=== PATIENT | female | born 1980 | race Two or more races ===

== ENCOUNTER 2016-11-30 16:55 | Emergency (ER) | payer MEDICAID ==
[~2016-11-30] VITALS: Ht 154.9 cm; Wt 116.1 kg
[2016-11-30] MEDS ORDERED: LIDOCAINE 1% HCL (LOCAL ANESTH.) INJ 20ML MDV IN ONE (19:00)
[2016-11-30 20:13] VITALS: BP 145/86
== END 2016-11-30 20:11 | disposition home or self-care (01) ==
LOC: ER 17:02
DX: S61.411A Laceration without foreign body of right hand, initial encounter (principal); W45.8XXA Other foreign body or object entering through skin, initial encounter; Y93.G1 Activity, food preparation and clean up; Y99.8 Other external cause status; Y92.098 Other place in other non-institutional residence as the place of occurrence of the external cause; Z88.0 Allergy status to penicillin; Z91.040 Latex allergy status
CPT/HCPCS: 12001; 99283; J2001

== ENCOUNTER 2019-03-12 16:13 | Emergency (ER) | payer MEDICAID ==
[~2019-03-12] VITALS: Ht 154.9 cm; Wt 126.1 kg
[2019-03-12 20:35] VITALS: BP 176/44
[2019-03-12] MEDS ORDERED: BACLOFEN 10 MG TAB PO ONE (20:45)
[2019-03-12] MEDS ORDERED: KETOROLAC TROMETH 60MG/2ML VIAL IM ONE (20:45)
[2019-03-12] MEDS ORDERED: ACETAMINOPHEN/CODEINE#3 (300/30mg) TAB PO ONE (20:45)
== END 2019-03-12 21:36 | disposition home or self-care (01) ==
LOC: ER 16:13
DX: M54.16 Radiculopathy, lumbar region (principal); Z88.0 Allergy status to penicillin; Z91.040 Latex allergy status
CPT/HCPCS: 72100; 96372; 99283; J1885

== ENCOUNTER 2023-03-12 15:35 | Emergency (ER) | payer MEDICAID ==
[~2023-03-12] VITALS: Ht 154.9 cm; Wt 136.1 kg
[2023-03-12 18:30] VITALS: BP 156/57; PULSE 71; RESP 18; TEMP 97.8; O2SAT 97
== END 2023-03-12 18:37 | disposition home or self-care (01) ==
LOC: ER 15:35
DX: M25.572 Pain in left ankle and joints of left foot (principal); J45.909 Unspecified asthma, uncomplicated; Z98.890 Other specified postprocedural states; Z87.891 Personal history of nicotine dependence; Z91.040 Latex allergy status; Z88.8 Allergy status to other drugs, medicaments and biological substances

== ENCOUNTER 2023-05-08 19:32 | Emergency (ER) | payer MEDICAID ==
[~2023-05-08] VITALS: Ht 154.9 cm; Wt 126.0 kg
[2023-05-08 22:16] LABS: Basophils # (auto) 0 10 ^3/uL (0-0.2); Basophils % (auto) 0.3 % (0.0-2.0); Eosinophils # (auto) 0 10 ^3/uL (0-0.8); Eosinophils % (auto) 0.3 % (0.0-7.0); Hematocrit 44.6 % (36.0-46.0); Hemoglobin 14.8 g/dL (12.2-16.2); Lymphocytes # (auto) 1.4 10 ^3/uL (0.4-5.4); Lymphocytes % (auto) 18.9 % (10.0-50.0); Mean Corpuscular Hemoglobin 30.6 pg (28.0-32.0); Mean Corpuscular Hgb Conc. 33.1 g/dL (32.0-36.0); Mean Corpuscular Volume 92.3 fL (80.0-100.0); Monocytes # (auto) 0.6 10 ^3/uL (0-1.3); Monocytes % (auto) 8.5 % (0.0-12.0); Neutrophils # (auto) 5.2 10 ^3/uL (1.6-8.6); Red Blood Cells 4.83 10^6/uL (4.0-5.20); Red Cell Distribution Width 13.9 % (11.8-14.3); White Blood Cell 7.2 10^3/uL (4.4-10.8)
[2023-05-08 22:26] LABS: Chloride 103 mmol/L (98-107); Potassium 3.2 mmol/L (3.5-5.1); Sodium 138 mmol/L (136-145)
[2023-05-08 22:27] LABS: Anion Gap 8 (5-15); Carbon Dioxide 27 mmol/L (20-30)
[2023-05-08 22:28] LABS: Calcium 8.7 mg/dL (8.7-10.4)
[2023-05-08 22:32] LABS: Glucose 104 mg/dL (74-106)
[2023-05-08 22:33] LABS: BUN/Creatinine Ratio 4.3 (10.0-20.0); Blood Urea Nitrogen 7 mg/dL (9-23); Lipase 39 U/L (12-53)
[2023-05-09 00:20] VITALS: BP 157/50; PULSE 79; RESP 16; TEMP 98.3; O2SAT 95
[2023-05-09] MEDS: METOCLOPRAMIDE HCL 5MG/ml INJ 2ml VIAL IM ONE (00:26)
[2023-05-09] MEDS: DICYCLOMINE HCL (10MG/ML) 2 ML AMPULE IM ONE (00:26)
[2023-05-09] MEDS: ONDANSETRON ODT 4 MG TAB PO ONE (00:26)
[2023-05-09 00:38] LABS: COVID19 ANTIGEN SOFIA FIA NEGATIVE (NEGATIVE)
[2023-05-09 01:31] LABS: Urine Bacteria MANY /hpf (None Seen); Urine Blood Negative /uL (Negative); Urine Clarity HAZY (Clear); Urine Color Colorless (Yellow); Urine Protein, UAD Negative (Negative); Urine Specific Gravity 1.001 (1.001-1.035); Urine Urobilinogen Normal (Negative); Urine WBC 1 /hpf (0 - 5)
[2023-05-09] MEDS ORDERED: ACET500T58 PO (02:02)
[2023-05-09] MEDS ORDERED: ZOFR4T PO (02:02)
[2023-05-09] MEDS ORDERED: METO-281 PO (02:02)
[2023-05-09] MEDS ORDERED: DICY10CA PO (02:02)
== END 2023-05-09 02:12 | disposition home or self-care (01) ==
LOC: ER 19:32
DX: A08.4 Viral intestinal infection, unspecified (principal); R10.2 Pelvic and perineal pain; J45.909 Unspecified asthma, uncomplicated; Z98.890 Other specified postprocedural states; Z87.891 Personal history of nicotine dependence; Z91.040 Latex allergy status; Z88.0 Allergy status to penicillin; Z20.822 Contact with and (suspected) exposure to COVID-19
CPT/HCPCS: 36415; 80048; 81001; 81025; 83690; 84702; 85025; 87426; 96372; 99284; J0500; J2765; Q0162

== ENCOUNTER 2023-12-05 17:38 | Emergency (ER) | payer MEDICAID ==
[~2023-12-05] VITALS: Ht 154.9 cm; Wt 139.1 kg
[~2023-12-05 17:38] MED LIST: ACET500T58 PO; DICY10CA PO; METO-281 PO; ZOFR4T PO
[2023-12-05 18:28] VITALS: BP 154/86; PULSE 77; RESP 18; TEMP 98.5; O2SAT 98
== END 2023-12-05 20:05 | disposition home or self-care (01) ==
LOC: ER 17:38
DX: I10 Essential (primary) hypertension (principal); E66.01 Morbid (severe) obesity due to excess calories; F17.290 Nicotine dependence, other tobacco product, uncomplicated; J45.909 Unspecified asthma, uncomplicated; G43.909 Migraine, unspecified, not intractable, without status migrainosus; Z68.43 Body mass index [BMI] 50.0-59.9, adult; Z90.49 Acquired absence of other specified parts of digestive tract; Z79.899 Other long term (current) drug therapy; Z98.890 Other specified postprocedural states; Z88.0 Allergy status to penicillin; Z91.040 Latex allergy status

== ENCOUNTER 2024-09-19 13:06 | Emergency (ER) | payer MEDICAID ==
[~2024-09-19] VITALS: Ht 154.9 cm; Wt 132.1 kg
--- NOTE | 2024-09-19 13:58 | ED.PDOC ---
HPI Comments This is a 44 year old female presenting to the ED with chief complaint of headache. Patient reports that she was placed on Losartan 25mg for uncontrolled hypertension, however, it continued to remain uncontrolled. Patient relays that her PCP then placed her on 100mg of it, but since then she has been experiencing headaches with associated lightheadedness and syncopal episodes. Patient states that she will have episodes of SOB when resting and when the headaches occur. Patient denies any chest pain, dizziness, fever, chills, cough, numbness, weakness, or tingling. Chief Complaint: High Blood Pressure Time Seen by MD: 13:57 Primary Care Provider: [facility] Reviewed Notes: Nurses Notes, Medications, Allergies Allergies: Coded Allergies: Latex (Verified Allergy, Unknown, 11/30/16) Penicillins (Verified Allergy, Unknown, 11/30/16) Uncoded Allergies: BEES (Allergy, Unknown, 11/30/16) Home Meds Active Scripts Acetaminophen (Acetaminophen) 500 Mg Tab, 500 MG PO Q4HP PRN, #30 TAB Prov:SACHA HAMMOND PAC 05/09/23 Dicyclomine Hcl (BENTYL CAPSULE) 10 Mg Cp, 1 CAP PO Q6HPRN, #20 CAP 0 Refills Prov:SACHA HAMMOND PAC 05/09/23 Metoclopramide Hcl (Reglan) 10 Mg Tab, 10 MG PO Q8HP PRN, #15 TAB Prov:SACHA HAMMOND PAC 05/09/23 Ondansetron Odt 4MG Tab (ZOFRAN PO) 4 Mg Tb, 4 MG PO Q6HP PRN, #20 TAB ODT TAB-DISSOLVE IN MOUTH, THEN SWALLOW Prov:SACHA HAMMOND PAC 05/09/23 Information Source: Patient, Spouse Mode of Arrival: Ambulatory Severity: Moderate Timing: Days Duration: Since onset Prehospital treatment: None Onset: At Rest Cardiac Risk Factors: HTN PE Risk Factors: None History of: None Associated Signs and Symptoms: SOB, Syncope Past Medical History PAST MEDICAL HISTORY: Asthma, HTN, Thyroid Surgical History: Cholecystectomy VET ASSISTANT History: No Pertinent VET ASSISTANT History Family History Family History: Unknown Social History Smoker: Other Alcohol: Occasionally Drugs: Denies Drug Use Lives In: Home Constitutional: denies: chills, diaphoresis, fatigue, fever, malaise, sweats, weakness, others EENTM: denies: blurred vision, double vision, ear bleeding, ear discharge, ear drainage, ear pain, ear ringing, eye pain, eye redness, hearing loss, mouth pain, mouth swelling, nasal discharge, nose bleeding, nose congestion, nose pain, photophobia, tearing, throat pain, throat swelling, voice changes, others Respiratory: reports: SOB at rest; denies: cough, hemoptysis, orthopnea, shortness of breath, SOB with excertion, stridor, wheezing, others Cardiovascular: reports: lightheadedness, syncope; denies: chest pain, dizzy spells, diaphoresis, Dyspnea on exertion, edema, irregular heart beat, left arm pain, palpitations, PND, others Gastrointestinal: denies: abdomen distended, abdominal pain, blood streaked bowels, constipated, diarrhea, dysphagia, difficulty swallowing, hematemesis, melena, nausea, poor appetite, poor fluid intake, rectal bleeding, rectal pain, vomiting, others Genitourinary: denies: abnormal vagina bleeding, burning, dyspareunia, dysuria, flank pain, frequency, hematuria, incontinence, pain, , vagina discharge, urgency, others Neurological: reports: headache; denies: dizziness, fainting, left sided numbness, left sided weakness, numbness, paresthesia, pre-existing deficit, right sided numbness, right sided weakness, seizure, speech problems, tingling, tremors, weakness, others Musculoskeletal: denies: back pain, gout, joint pain, joint swelling, muscle pain, muscle stiffness, neck pain, others Integumetry: denies: bruises, change in color, change in hair/nails, dryness, laceration, lesions, lumps, rash, wounds, others Allergic/Immunocompromised: denies: Difficulty Healing, Frequent Infections, Hives, Itching, others Hematologic/Lymphatic: denies: anemia, blood clots, easy bleeding, easy bruising, swollen glands, others Endocrine: denies: excessive hunger, excessive sweating, excessive thirst, excessive urination, flushing, intolerance to cold, intolerance to heat, unexplained weight gain, unexplained weight loss, others Psychiatric: denies: anxiety, bipolar disorder, depression, hopeless, panic disorder, schizophrenia, sleepless, suicidal, others All Other Systems: Reviewed and Negative Physical Exam General Appearance: Moderate Distress, Normal HEENT: Normal ENT Inspection, Pharynx Normal, TMs Normal Neck: Full Range of Motion, Non-Tender, Normal, Normal Inspection Respiratory: Chest Non-Tender, Lungs Clear, No Accessory Muscle Use, No Respiratory Distress, Normal Breath Sounds Cardiovascular: No Edema, No JVD, No Murmur, No Gallop, Normal Peripheral Pulses, Regular Rate/Rhythm Breast Exam: Deferred Gastrointestinal: No Organomegaly, Non Tender, No Pulsatile Mass, Normal Bowel Sounds, Soft Genitalia: Deferred Pelvic: Deferred Rectal: Deferred Extremities: No calf tenderness, Normal capillary refill, Normal inspection, Normal range of motion, Non-tender, No pedal edema Musculoskeletal : Apperance: Normal Neurologic: Alert, air pumper II-XII nml as Tested, No Motor Deficits, Normal Affect, Normal Mood, No Sensory Deficits Cerebellar Function: Normal Reflexes: Normal Skin: Dry, Normal Color, Warm Peripheral Pulses: 3+ Radial (R), 3+ Radial (L) Lymphatic: No Adenopathy EKG EKG : Pulse Rate (adult): 72 [place]: Normal Cardiac Rhythm: NSR Block: None Hypertrophy: None ST: Normal Was a procedure done? Was a procedure done?: No CP Differential Dx Differential Diagnosis: A-fib, A-Flutter, Angina, Anxiety / Panic Attack, Atr ial Dysrhythmia, Electrolyte Disorder X-Ray, Labs, Meds, VS Vital Signs Date Time Temp Pulse Resp B/P (MAP) Pulse Ox O2 Delivery O2 Flow Rate FiO2 09/19/24 13:58 72 09/19/24 13:18 74 09/19/24 13:08 97.5 83 16 162/73 98 97.5 Lab Test 09/19/24 13:58 Range/Units White Blood Count 6.8 4.4-10.8 10^3/uL Red Blood Count 4.70 4.0-5.20 10^6/uL Hemoglobin 14.6 12.2-16.2 g/dL Hematocrit 43.4 36.0-46.0 % Mean Corpuscular Volume 92.2 80.0-100.0 fL Mean Corpuscular Hemoglobin 31.1 28.0-32.0 pg Mean Corpuscular Hemoglobin Concent 33.7 32.0-36.0 g/dL Red Cell Distribution Width 14.6 H 11.8-14.3 % Platelet Count 186 140-450 10^3/uL Mean Platelet Volume 8.9 6.9-10.8 fL Neutrophils (%) (Auto) 59.1 37.0-80.0 % Lymphocytes (%) (Auto) 31.0 10.0-50.0 % Monocytes (%) (Auto) 7.5 0.0-12.0 % Eosinophils (%) (Auto) 1.8 0.0-7.0 % Basophils (%) (Auto) 0.6 0.0-2.0 % Neutrophils # (Auto) 4.0 1.6-8.6 10 ^3/uL Lymphocytes # (Auto) 2.1 0.4-5.4 10 ^3/uL Monocytes # (Auto) 0.5 0-1.3 10 ^3/uL Eosinophils # (Auto) 0.1 0-0.8 10 ^3/uL Basophils # (Auto) 0 0-0.2 10 ^3/uL Nucleated Red Blood Cells 0.2 % Sodium Level 139 136-145 mmol/L Potassium Level 4.0 3.5-5.1 mmol/L Chloride Level 107 98-107 mmol/L Carbon Dioxide Level 25 20-31 mmol/L Anion Gap 7 5-15 Blood Urea Nitrogen 9 9-23 mg/dL Creatinine 0.84 0.550-1.02 mg/dL Glomerular Filtration Rate Calc 87 >90 mL/min BUN/Creatinine Ratio 10.7 10.0-20.0 Serum Glucose 101 74-106 mg/dL Calcium Level 8.7 8.7-10.4 mg/dL Patient alert. Complaining of headache. History of high blood pressure. Vitals stable. Answering questions. Was given clonidine. Was given Ativan. Good muscle strength. No sign of any distress. WBC within normal limits. Hemoglobin within normal limits. CT of the head reviewed does not show any acute changes. Explained to the patient. Was told to follow up with her primary care physician. Was told to come back if there is any problem. Time of 1ST Reevaluation: 14:56 Reevaluation 1ST: Unchanged Patient Education/Counseling: Diagnosis, Treatment Family Education/Counseling: Diagnosis, Treatment SEPSIS Sepsis Screen Date sepsis recognized/suspect: Sep 19, 2024 Time Sepsis recognized/suspect: 1308 Recent Procedure: No On Antibiotic Therapy: No Respiratory Rate >20: No Heart Rate >90: No Temp<36 C (96.8 F) or >38.3 C: No SBP <90 or MAP <65 mmHG: No New Acute Mental Status Change: No Is the patient on CPAP, BIPAP,: No Physician Orders Electrocardigram (09/19/24 13:45) Head Without Contrast (09/19/24 13:46) Urinalysis (09/19/24 13:46) Hydrocodone-Acet 10/325mg Tab ([place] 10/ (09/19/24 15:30) Lorazepam Tablet (Ativan Tablet) (09/19/24 15:30) Clonidine Hcl Tablet (Catapres Tablet) (09/19/24 15:30) Vital Signs Date Time Temp Pulse Resp B/P (MAP) Pulse Ox O2 Delivery O2 Flow Rate FiO2 09/19/24 13:58 72 09/19/24 13:18 74 09/19/24 13:08 97.5 83 16 162/73 98 97.5 Laboratory Tests Test 09/19/24 13:58 White Blood Count 6.8 10^3/uL (4.4-10.8) Departure 1 Departure Time of Disposition: 15:20 Impression: Primary Impression: Hypertensive urgency Disposition: 01 HOME / SELF CARE / HOMELESS Condition: Good Discharged With: Self Critical Care Note Critical Care Time?: No Stability Stability form required: No Heart Score Heart Score: Heart Score Response (Comments) Value History Highly Suspicious 2 EKG Normal 0 Age 45-64 1 Risk Factors 1 or 2 risk factors 1 Troponin Normal limit 0 Total 4 I personally scribed for GWENDOLYN GUAMAN MD ([email or web address]) on 09/19/24 at 13:58. Electronically submitted by Juan Reyes ([email or web address]). GWENDOLYN GUAMAN MD Sep 19, 2024 13:58
[2024-09-19 14:08] LABS: Hematocrit 43.4 % (36.0-46.0); Hemoglobin 14.6 g/dL (12.2-16.2); Mean Corpuscular Hemoglobin 31.1 pg (28.0-32.0); Mean Corpuscular Volume 92.2 fL (80.0-100.0); Nucleated Red Blood Cells % 0.2 %
[2024-09-19 14:16] LABS: Chloride 107 mmol/L (98-107); Potassium 4.0 mmol/L (3.5-5.1); Sodium 139 mmol/L (136-145)
[2024-09-19 14:17] LABS: Anion Gap 7 (5-15); Carbon Dioxide 25 mmol/L (20-31)
[2024-09-19 14:18] LABS: Calcium 8.7 mg/dL (8.7-10.4)
[2024-09-19 14:22] LABS: Glucose 101 mg/dL (74-106)
[2024-09-19 14:23] LABS: BUN/Creatinine Ratio 10.7 (10.0-20.0); Blood Urea Nitrogen 9 mg/dL (9-23)
--- NOTE | 2024-09-19 14:40 | DVH ---
EXAM: CT HEAD WITHOUT CONTRAST HISTORY: headache COMPARISON: None TECHNIQUE: Noncontrast axial CT images of the head were performed. Sagittal and coronal reformatted i mages were obtained. This CT exam was performed using 1 or more of the following dose reduction techn iques: Automated exposure control, adjustment of the mA and/or kv according to patient size, or the u se of iterative reconstruction techniques. Radiation Dose: CTDI volume is 56.37 mGy. Dose-length product is 901.94 mGy*cm FINDINGS: No intracranial hemorrhage, mass, midline shift, hydrocephalus, or evidence of acute large vessel inf arct. The paranasal sinuses are clear. The bilateral mastoid air cells and middle ear spaces are hank r. No cranial fracture or scalp edema. There is right frontal scalp scarring. IMPRESSION: No acute intracranial process.
[2024-09-19] MEDS: KETOROLAC TROMETH 60MG/2ML VIAL IM ONE (15:38)
[2024-09-19] MEDS: ONDANSETRON ODT 4 MG TAB PO ONE (15:38)
[2024-09-19] MEDS: HYDROcodone-ACET 10/325MG TAB PO ONE (15:39)
[2024-09-19] MEDS: LORazepam 0.5 MG TAB PO ONE (15:39)
[2024-09-19 16:56] LABS: Urine Protein, UAD Negative (Negative)
[2024-09-19 18:26] VITALS: BP 129/79; PULSE 69; RESP 16; TEMP 97.2; O2SAT 96
== END 2024-09-19 18:28 | disposition home or self-care (01) ==
LOC: ER 13:06
DX: I16.0 Hypertensive urgency (principal); I10 Essential (primary) hypertension; F17.200 Nicotine dependence, unspecified, uncomplicated; J45.909 Unspecified asthma, uncomplicated; Z90.49 Acquired absence of other specified parts of digestive tract; Z91.030 Bee allergy status; Z88.0 Allergy status to penicillin
CPT/HCPCS: 36415; 70450; 80048; 81001; 85025; 96372; 99285; J1885; Q0162